=== PATIENT | female | born 1950 | race African-American/Black ===

== ENCOUNTER 2019-11-17 17:40 | Observation (INO) | payer OTHER, BC ==
--- NOTE | 2019-11-17 17:49 | PDOC ---
Rapid Medical Evaluation Chief Complaint: Palpitations Time Seen by Provider: 11/17/19 17:44 Medical Evaluation: Allergies Allergy/AdvReac Type Severity Reaction Status Date / Time No Known Allergies Allergy Verified 11/17/19 17:44 11/17/19 17:45 69 year old female BIBA with palpitations since yesterday. recent travel to [place]. denies pleuritic pain, chest pain Nausea/ vomiting. Patient alert ox3. A: tachycardia P: EKG Discharge Disposition - Diagnosis Palpitations - Referrals - Patient Instructions - Post Discharge Activity
[2019-11-17 18:14] VITALS: BMI 25.8
--- NOTE | 2019-11-17 18:53 | PDOC ---
History of Present Illness - General Chief Complaint: Palpitations Stated Complaint: PALPITATIONS Time Seen by Provider: 11/17/19 17:44 History Source: Patient Exam Limitations: No Limitations - History of Present Illness Initial Comments: 11/17/19 18:51 PCP: LUPE Villagomez Cards: Louis Ortega HPI: 69 yo F PMH HTN presenting with palpitations for 1 day. Patient reports palpitations since yesterday. Reports prior episodes of palpitations with negative cardiac workup, negative 24hour holter, no prior ACS. Follows with cardiology, has an appointment scheduled for tomorrow. Denies any other symptoms - no difficulty breathing, chest pain, nausea, sweating, arm pain, fevers / chills. Palpitations occurred yesterday, lasting overnight, resolving on arrival in the department. All: Levofloxacin Meds: Amlodipine 10mg, Losartan 50mg PMH: HTN PSH: Myomectomy, Intestinal Obstruction Past History - Travel Traveled outside of the country in the last 30 days: Yes If so, where?: [place] Close contact w/someone who was outside of country & ill: No - Past Medical History Allergies/Adverse Reactions: Allergies Allergy/AdvReac Type Severity Reaction Status Date / Time levofloxacin [From Levaquin] Allergy Mild Itching Verified 11/17/19 17:46 - Psycho Social/Smoking Cessation Hx Smoking History: Never smoked Hx Alcohol Use: No Drug/Substance Use Hx: No Review of Systems - Review of Systems Able to Perform ROS?: Yes Is the patient limited Mauritian proficient: Yes Constitutional: No: Chills, Diaphoresis, Fever HEENTM: No: Nose Congestion, Throat Pain Respiratory: No: Cough, Shortness of Breath, Stridor, Wheezing, Productive cough Cardiac (ROS): Yes: Palpitations. No: Chest Pain, Edema, Irregular Heart Rate, Lightheadedness, Syncope, Chest Tightness ABD/GI: No: Constipated, Diarrhea, Nausea, Vomiting : No: Burning, Dysuria, Frequency Musculoskeletal: No: Muscle Pain, Muscle Weakness Integumentary: No: Pallor, Pruritus, Rash, Sweating Neurological: No: Headache, Numbness, Tingling, Weakness Psychiatric: No: Sleep Pattern Change, Change in Appetite Endocrine: No: Increased Thirst, Increased Urine Hematologic/Lymphatic: No: Anemia, Blood Clots, Easy Bleeding All Other Systems: Reviewed and Negative *Physical Exam - Vital Signs Last Vital Signs Temp Pulse Resp BP Pulse Ox 98.0 F 124 H 18 137/73 96 11/17/19 17:45 11/17/19 17:45 11/17/19 17:45 11/17/19 17:45 11/17/19 17:45 - Physical Exam 11/17/19 20:01 Vitals reviewed, AFVSS GEN: Well appearing, appears stated age, NAD, comfortable. AAOx3. HEENT: NCAT, EOMI, PERRL. Sclera anicteric, noninjected. No facial asymmetry. Moist mucous membranes. Normal voice. Trachea midline. CV: RRR, S1/S2, no murmurs / rubs / gallops appreciated. LUNG: CTAB, normal work of breathing. No wheezes, rales, rhonchi. No cough. Speaking full sentences. GI: Soft, NTND, +BS, no guarding, no rebound. No masses. Neg CVAT b/l. EXTREMITIES: 2+ distal pulses. No LE edema. No obvious deformities of all extremities. SKIN: Warm, dry, no rashes appreciated, non-jaundiced. PSYCH: Normal mood and affect. Cooperative and appropriate. NEURO: CN grossly intact. Moving all extremities well. Normal strength and sensation grossly. Heart Score/ECG Review - History History: Slightly suspicious - Electrocardiogram EKG: Normal - Age Age: >/= 65 - Risk Factors Risk Factors Heart Score: Yes Hx Hypertension Based on the list above the patient has:: 1-2 risk factors - Troponin Troponin: </= normal limit - Score Heart Score - Total: 3 ED Treatment Course - LABORATORY CBC & Chemistry Diagram: 11/17/19 17:50 11/17/19 17:58 Medical Decision Making - Medical Decision Making 11/17/19 19:40 69 yo F PMH HTN presenting with palpitations for 1 day. HEART Score 3. DDX: Palpitations, arrhythmia, electrolyte abnormality, anxiety, unlikely ACS. - CBC, CMP, Cardiac, TSH - EKG, CXR EK, NSR, normal axis, QTc 457, T wave inversion V1, V2 11/17/19 20:05 - K = 3.2, related 40 mg PO - Troponin negative - CBC/CMP otherwise unremarkable - TSH pending Dispo: Home, Cardiac F/u tomorrow 11/17/19 20:44 - TSH within normal limits 11/17/19 22:21 - Repeat cardiac profile ordered 11/17/19 23:32 - Troponin 0.06 - Patient without chest pain, nausea, diaphoresis EKbpm, NSR, normal axis, diffuse T wave flattening compared with prior Admit 11/17/19 23:40 -Patient with evolving EKG, up-trending Troponin, will require admission for serial troponins / EKGs Discharge - Discharge Information Problems reviewed: Yes Clinical Impression/Diagnosis: Palpitations Condition: Improved Disposition: HOME - Admission No - Follow up/Referral Referrals: ON STAFF,NOT [Primary Care Provider] - - Patient Discharge Instructions Patient Printed Discharge Instructions: DI for Palpitations Additional Instructions: You were seen and evaluated for palpitations. Please follow up with your distribution agent tomorrow as scheduled. Return to the ED for any new or concerning symptoms. - Post Discharge Activity
[2019-11-17 19:02] LABS: BASO % 0.7 % (0-2.0); EOS % 1.3 % (0-4.5); HEMATOCRIT 39.1 % (32.4-45.2); HEMOGLOBIN 12.5 GM/dL (10.7-15.3); LYMPH % 31.1 % (8-40); MCH 24.7 pg (25.7-33.7); MCHC 32.1 g/dl (32.0-36.0); MONO % 6.1 % (3.8-10.2); NEUT % 60.8 % (42.8-82.8); RBC 5.08 M/mm3 (3.60-5.2); RDW 14.6 % (11.6-15.6); WHITE BLOOD COUNT 7.8 K/mm3 (4.0-10.0)
[2019-11-17 19:41] LABS: ALBUMIN 4.1 g/dl (3.4-5.0); BLOOD UREA NITROGEN 16.3 mg/dL (7-18); CALCIUM 9.9 mg/dL (8.5-10.1); CREATININE 1.1 mg/dL (0.55-1.3); MAGNESIUM 2.4 mg/dL (1.8-2.4); POTASSIUM 3.2 mmol/L (3.5-5.1); TOT PROT 7.6 g/dl (6.4-8.2)
[2019-11-17] MEDS ORDERED: POTASSIUM CHLORIDE TABS 20 MEQ TABLET.ER (FP) PO ONE ×2 (19:54→20:45)
[2019-11-17] MEDS ORDERED: MAGNESIUM SULF 50% (8.12 MEQ/2 ML-1 GM VIAL) IVPB ONE (20:10)
[2019-11-17] MEDS ORDERED: SODIUM CHLORIDE 0.9% 500 ML INFUS.BAG IV ONE (20:10)
[2019-11-17] MEDS ORDERED: amLODIPine BESYLATE 5 MG TABLET (FP) PO ONE (20:14)
[2019-11-17] MEDS ORDERED: MAGNESIUM 1GM/D5W - 2 GM/200 ML IVPB IVPB ONE (20:45)
[2019-11-17] MEDS ORDERED: amLODIPine BESYLATE 5 MG TABLET (FP) ONE (20:45)
--- NOTE | 2019-11-17 20:49 | PDOC ---
Attending Attestation - Resident Resident Name: EmileRommel - ED Attending Attestation I have performed the following: I have examined & evaluated the patient, The case was reviewed & discussed with the resident, I agree w/resident's findings & plan - HPI HPI: 11/17/19 20:46 Pt comes with depression. 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 States that she is lonely. SHe is living with a friend and splitting rent currently. - Physicial Exam PE: 11/17/19 20:49 Normal exam. Heart and lungs clear HEENT normal Afebrile Pt has no abd pain and no flank pain and no rash Pt has no leg edema - Medical Decision Making 11/17/19 20:49 Labs normal Pt feels better after talking with us. She is tachy at 1-5 on EKG> She is complaint with her amlodipine and her lisinopril. She will be given another dose of amlodipine and NSS (her blood sugar is 173) and she will get potassium and mag, as he K+ is low. Her PMD is Dr. Villagomez at [facility], and she will follow with him and she has a cardiology appt for tomorrow. 11/18/19 00:11 Pt will not make the cardiology appointment tomorrow, as her EKG is evolving and her troponin is increasing. She will be treated with asa, lovenox and will be admitted to tele Hospitalist is aware 11/18/19 05:25 EKG#2 has flattened t's. EKG is evolving for the worse. Heart Score/ECG Review - ECG Intrepretation Rhythm: Regular Rhythm - [place]: Normal - P and NV Delta Wave(s) Present: No WPW: No - QRS Poor R Wave Progression: No Q Wave Present: No - ST and T Early Repolarization: No Non Specific ST-T Wave changes: No - ECG Impressions Normal ECG: Yes Non-specific ST Elevation: No Ischemic Changes: No Tachycardia: Sinus
[2019-11-17 21:18] LABS: PLATELET COUNT 196 K/MM3 (134-434)
[2019-11-17 21:19] LABS: MEAN PLT VOLUME 10.3 fl (7.5-11.1); PLATELET ESTIMATE ADEQUATE
[2019-11-18] MEDS ORDERED: ASPIRIN 81 MG CHEWABLE TABLETS PO ONE (00:12)
[2019-11-18] MEDS ORDERED: ENOXAPARIN NA (PORCINE) 80 MG/0.8 ML DISP.SYRIN SQ ONE ×2 (00:12→00:49)
[2019-11-18] MEDS ORDERED: ASPIRIN 81 MG CHEWABLE TABLETS ONE (00:49)
--- NOTE | 2019-11-18 01:39 | HP ---
CHIEF COMPLAINT: palpitations PCP: HISTORY OF PRESENT ILLNESS: Patient is a 69 y/o female with a history of HTN who presents for two days of palpations. Patient has had palpitations in the past, nothing specific brought it on. She has not had a stress test recently but a few years ago she had a holter monitor that was negative. She follows with a hollow handle knife assembler and had an appointment tomorrow. She currently denies having any chest pain, palpatations, nausea, vomiting, or diarrhea ER course was notable for: (1) (2) (3) Recent Travel: denies PAST MEDICAL HISTORY: HTN PAST SURGICAL HISTORY: Social History: Smoking: denies Alcohol: denies Drugs: Allergies levofloxacin [From Levaquin] Allergy (Mild, Verified 11/17/19 17:46) Itching HOME MEDICATIONS: REVIEW OF SYSTEMS CONSTITUTIONAL: Absent: fever, chills, diaphoresis, generalized weakness, malaise, loss of appetite, weight change HEENT: Absent: rhinorrhea, nasal congestion, throat pain, throat swelling, difficulty swallowing, mouth swelling, ear pain, eye pain, visual changes CARDIOVASCULAR: palpitations, Absent: chest pain, syncope, irregular heart rate, lightheadedness, peripheral edema RESPIRATORY: Absent: cough, shortness of breath, dyspnea with exertion, orthopnea, wheezing, stridor, hemoptysis GASTROINTESTINAL: Absent: abdominal pain, abdominal distension, nausea, vomiting, diarrhea, constipation, melena, hematochezia GENITOURINARY: Absent: dysuria, frequency, urgency, hesitancy, hematuria, flank pain, genital pain MUSCULOSKELETAL: Absent: myalgia, arthralgia, joint swelling, back pain, neck pain SKIN: Absent: rash, itching, pallor HEMATOLOGIC/IMMUNOLOGIC: Absent: easy bleeding, easy bruising, lymphadenopathy, frequent infections ENDOCRINE: Absent: unexplained weight gain, unexplained weight loss, heat intolerance, cold intolerance NEUROLOGIC: Absent: headache, focal weakness or paresthesias, dizziness, unsteady gait, seizure, mental status changes, bladder or bowel incontinence PSYCHIATRIC: Absent: anxiety, depression, suicidal or homicidal ideation, hallucinations. PHYSICAL EXAMINATION Vital Signs - 24 hr 11/17/19 11/17/19 17:45 21:20 Temperature 98.0 F Pulse Rate 124 H Pulse Rate [ 91 H Left Radial] Respiratory 18 18 Rate Blood Pressure 137/73 Blood Pressure 121/75 [Right Arm] O2 Sat by Pulse 96 98 Oximetry (%) GENERAL: Awake, alert, and fully oriented, in no acute distress. HEAD: Normal with no signs of trauma. EYES: Pupils equal, round and reactive to light, extraocular movements intact EARS, NOSE, THROAT: Moist mucous membranes. LUNGS: Breath sounds equal, clear to auscultation bilaterally. No wheezes, and no crackles. No accessory muscle use. HEART: Regular rate and rhythm, normal S1 and S2 without murmur, rub or gallop. ABDOMEN: Soft, nontender, not distended, normoactive bowel sounds, no guarding, no rebound, no masses. MUSCULOSKELETAL: No CVA tenderness. LOWER EXTREMITIES: 2+ pulses, warm, well-perfused. No calf tenderness. No peripheral edema. NEUROLOGICAL: Cranial nerves II-XII intact. Normal speech. Normal gait. SKIN: Warm, dry, normal turgor, no rashes or lesions noted, normal capillary refill. CBC, BMP 11/17/19 17:50 11/17/19 17:58 ASSESSMENT/PLAN: Patient is a 69 y/o female with a history of HTN who presents for two days of palpations. #Palpatations, r/o ACS - cannot exclude palpatations 2/2 to hypokalemia - increased troponins, .04, .06, continue to trend - 2nd ekg with some twave flattening, non specific twave changes - full dose lovenox given 1x - ASA 324 once, will continue 81 daily, consider reconciling on discharge - f/u repeat ekg in am - ECHO ordered, would not be completed until Wednesday #HTN - monitor off medications - currently stable - one time amlodipine in ED #DVT ppx - heaprin TID FEN - regular diet - monitor K, repleted Dispo: if troponins flatten, consider discharging patient tomorrow and she can follow up with her Cardio appointment at noon - unable to confirm medications at this time - monitor on tele obs Visit type - Emergency Visit Emergency Visit: Yes ED Registration Date: 11/17/19 Care time: The patient presented to the Emergency Department on the above date and was hospitalized for further evaluation of their emergent condition. - New Patient This patient is new to me today: Yes Date on this admission: 11/18/19 - Critical Care Critical Care patient: No ATTENDING PHYSICIAN STATEMENT I saw and evaluated the patient. I reviewed the resident's note and discussed the case with the resident. I agree with the resident's findings and plan as documented. SUBJECTIVE: OBJECTIVE: ASSESSMENT AND PLAN:
--- NOTE | 2019-11-18 01:45 | PN ---
Teaching Attending Note Name of Resident: Karla Del Rio ATTENDING PHYSICIAN STATEMENT I saw and evaluated the patient. I reviewed the resident's note and discussed the case with the resident. I agree with the resident's findings and plan as documented. SUBJECTIVE: 69-year-old woman with a history of hypertension complaining of 2 days of palpitations which are continuous. Denied any chest pain or significant shortness of breath. Reports that she has had a Holter exam previously which was allegedly normal. She follows with a volcanologist and reports that has an appointment on 11/18/2019 at noon. OBJECTIVE: Last Vital Signs Temp Pulse Resp BP Pulse Ox 98.0 F 91 H 18 121/75 98 11/17/19 17:45 11/17/19 21:20 11/17/19 21:20 11/17/19 21:20 11/17/19 21:30 GENERAL: Well developed, well nourished. Awake and alert. No acute distress. HEENT: Normocephalic, atraumatic. PERRLA, EOMI. No conjunctival pallor. Sclera are non- icteric. Moist mucous membranes. Oropharynx is clear. NECK: Supple. Full ROM. No JVD. Carotid pulses 2+ and symmetric, without bruits. No thyromegaly. No lymphadenopathy. CARDIOVASCULAR: Regular rate and rhythm. No murmurs, rubs, or gallops. Distal pulses are 2+ and symmetric. PULMONARY: No evidence of respiratory distress. Lungs clear to auscultation bilaterally. No wheezing, rales or rhonchi. ABDOMINAL: Soft. Non-tender. Non-distended. No rebound or guarding. Normal bowel sounds, vertical scar MUSCULOSKELETAL Normal range of motion at all joints. No bony deformities or tenderness. No CVA tenderness. EXTREMITIES: No cyanosis. No clubbing. No edema. No calf tenderness. SKIN: Warm and dry. Normal capillary refill. No rashes. No jaundice. PSYCHIATRIC: Cooperative. Good eye contact. Appropriate mood and affect. Abnormal Lab Results 11/17/19 11/17/19 11/17/19 17:50 17:58 17:58 MCV 77.0 L MCH 24.7 L Potassium 3.2 L Random Glucose 173 H Creatine Kinase 198 H CK-MB (CK-2) 6.6 H Troponin I 11/17/19 22:10 MCV MCH Potassium Random Glucose Creatine Kinase CK-MB (CK-2) 6.1 H Troponin I 0.06 H EKG Reviewed, showed normal sinus rhythm with some nonspecific T wave changes ASSESSMENT AND PLAN: 69-year-old woman with palpitations with EKG showing normal sinus rhythm with normal rate. Mildly elevated cardiac markersCK-MB and troponin. No active chest pain and doubt ACS. Noted to have hypokalemia which may contribute to palpitations and arrhythmias. Telemetry observation Trend troponins Transthoracic echo Supplement potassium Check electrolytes and supplement as needed Urine toxicology screen Chest x-ray #Hypertension Continue losartan and amlodipine 2 g salt diet #DVT prophylaxisheparin subcutaneously
[2019-11-18] MEDS: HEPARIN NA (PORCINE) 5,000 UNITS/ML 1ML VIAL SQ SCH ×3 (06:44→21:36)
[2019-11-18 07:46] LABS: BASO % 0.9 % (0-2.0); HEMATOCRIT 34.7 % (32.4-45.2); HEMOGLOBIN 11.2 GM/dL (10.7-15.3); LYMPH % 45.2 % (8-40); MCH 24.7 pg (25.7-33.7); MCHC 32.4 g/dl (32.0-36.0); MEAN CELL VOLUME 76.2 fl (80-96); MEAN PLT VOLUME 10.1 fl (7.5-11.1); MONO % 6.3 % (3.8-10.2); NEUT % 44.6 % (42.8-82.8); PLATELET COUNT 170 K/MM3 (134-434); RBC 4.55 M/mm3 (3.60-5.2); RDW 14.3 % (11.6-15.6); WHITE BLOOD COUNT 5.3 K/mm3 (4.0-10.0)
[2019-11-18 08:18] LABS: ALBUMIN 3.5 g/dl (3.4-5.0); BILIRUBIN,TOTAL 1.1 mg/dL (0.2-1); BLOOD UREA NITROGEN 12.1 mg/dL (7-18); CALCIUM 9.9 mg/dL (8.5-10.1); CREATININE 0.8 mg/dL (0.55-1.3); MAGNESIUM 2.8 mg/dL (1.8-2.4); PHOSPHOROUS 2.7 mg/dL (2.5-4.9); POTASSIUM 3.5 mmol/L (3.5-5.1); TOT PROT 6.7 g/dl (6.4-8.2)
[2019-11-18] MEDS: ASPIRIN 81 MG CHEWABLE TABLETS PO SCH (09:28)
[2019-11-18] MEDS ORDERED: PNEUMOC 13-VAL CONJ-DIP CRM/PF 0.5 ML DISP.SYRIN IM ONE (10:00)
--- NOTE | 2019-11-18 14:29 | EKG ---
Test Reason : Blood Pressure : / mmHG Vent. Rate : 065 BPM Atrial Rate : 065 BPM P-R Int : 166 ms QRS Dur : 078 ms QT Int : 304 ms P-R-T Axes : 059 011 002 degrees QTc Int : 316 ms NORMAL SINUS RHYTHM NONSPECIFIC T WAVE ABNORMALITY ABNORMAL ECG Confirmed by MD DASHA, NILAM ([id number]) on 11/18/2019 2:29:38 PM Referred By: Confirmed By:NILAM LOU MD
--- NOTE | 2019-11-18 14:31 | EKG ---
Test Reason : Blood Pressure : / mmHG Vent. Rate : 105 BPM Atrial Rate : 105 BPM P-R Int : 162 ms QRS Dur : 068 ms QT Int : 346 ms P-R-T Axes : 059 028 039 degrees QTc Int : 457 ms SINUS TACHYCARDIA POSSIBLE LEFT ATRIAL ENLARGEMENT NONSPECIFIC ST AND T WAVE ABNORMALITY ABNORMAL ECG Confirmed by MD DASHA, NILAM ([id number]) on 11/18/2019 2:31:19 PM Referred By: Confirmed By:NILAM LOU MD
--- NOTE | 2019-11-18 15:37 | PN ---
Physical Exam: SUBJECTIVE: Patient seen and examined. She has no complaints. She denies CP, palpitations, SOB. OBJECTIVE: Vital Signs Period Temp Pulse Resp BP Sys/Guevara Pulse Ox Last 24 Hr 97.8 F-99.2 F 65-124 18-20 109-137/62-77 96-99 GENERAL: The patient is awake, alert, and fully oriented, in no acute distress. LUNGS: Breath sounds equal, clear to auscultation bilaterally, no wheezes, no crackles, no accessory muscle use. HEART: Regular rate and rhythm, S1, S2 without murmur, rub or gallop. ABDOMEN: Soft, nontender, nondistended, normoactive bowel sounds, no guarding, no rebound, no hepatosplenomegaly, no masses. EXTREMITIES: 2+ pulses, warm, well-perfused, no edema. Laboratory Results - last 24 hr 11/17/19 11/17/19 11/17/19 17:50 17:58 17:58 WBC 7.8 RBC 5.08 Hgb 12.5 Hct 39.1 MCV 77.0 L MCH 24.7 L MCHC 32.1 RDW 14.6 Plt Count 196 MPV 10.3 Absolute Neuts (auto) 4.8 Neutrophils % 60.8 Lymphocytes % 31.1 Monocytes % 6.1 Eosinophils % 1.3 Basophils % 0.7 Nucleated RBC % 0 Platelet Estimate Adequate Platelet Comment Giant platelets Sodium 137 Potassium 3.2 L Chloride 102 Carbon Dioxide 27 Anion Gap 8 BUN 16.3 Creatinine 1.1 Est GFR (CKD-EPI)AfAm 59.32 Est GFR (CKD-EPI)NonAf 51.18 Random Glucose 173 H Calcium 9.9 Phosphorus Magnesium 2.4 Total Bilirubin 1.0 AST 26 ALT 27 Alkaline Phosphatase 113 Creatine Kinase 198 H Creatine Kinase Index 3.3 CK-MB (CK-2) 6.6 H Troponin I 0.04 Total Protein 7.6 Albumin 4.1 TSH 1.23 11/17/19 11/18/19 11/18/19 22:10 03:00 05:35 WBC 5.3 RBC 4.55 Hgb 11.2 Hct 34.7 MCV 76.2 L MCH 24.7 L MCHC 32.4 RDW 14.3 Plt Count 170 MPV 10.1 Absolute Neuts (auto) 2.4 Neutrophils % 44.6 D Lymphocytes % 45.2 H D Monocytes % 6.3 Eosinophils % 3.0 D Basophils % 0.9 Nucleated RBC % 0 Platelet Estimate Platelet Comment Sodium Potassium Chloride Carbon Dioxide Anion Gap BUN Creatinine Est GFR (CKD-EPI)AfAm Est GFR (CKD-EPI)NonAf Random Glucose Calcium Phosphorus Magnesium Total Bilirubin AST ALT Alkaline Phosphatase Creatine Kinase 183 173 Creatine Kinase Index 3.3 3.6 CK-MB (CK-2) 6.1 H 6.4 H Troponin I 0.06 H 0.04 Total Protein Albumin TSH 11/18/19 05:35 WBC RBC Hgb Hct MCV MCH MCHC RDW Plt Count MPV Absolute Neuts (auto) Neutrophils % Lymphocytes % Monocytes % Eosinophils % Basophils % Nucleated RBC % Platelet Estimate Platelet Comment Sodium 144 Potassium 3.5 Chloride 111 H Carbon Dioxide 26 Anion Gap 7 L BUN 12.1 Creatinine 0.8 Est GFR (CKD-EPI)AfAm 87.18 Est GFR (CKD-EPI)NonAf 75.22 Random Glucose 91 Calcium 9.9 Phosphorus 2.7 Magnesium 2.8 H Total Bilirubin 1.1 H AST 22 ALT 23 Alkaline Phosphatase 93 Creatine Kinase Creatine Kinase Index CK-MB (CK-2) Troponin I Total Protein 6.7 Albumin 3.5 TSH Active Medications Generic Name Dose Route Start Last Admin Trade Name Freq PRN Reason Stop Dose Admin Amlodipine Besylate 10 mg 11/18/19 14:45 Norvasc - PO DAILY [facility] Aspirin 81 mg 11/18/19 10:00 11/18/19 09:28 Asa - PO 81 mg DAILY [facility] Administration Heparin Sodium (Porcine) 5,000 unit 11/18/19 06:00 11/18/19 14:33 Heparin - SQ Not Given TID [facility] Losartan Potassium 50 mg 11/18/19 14:45 Cozaar - PO DAILY [facility] ASSESSMENT/PLAN: This is a 69 year old woman with a history of HTN who presented to the ED with palpitations. 1. Palpitations - No arrhythmias on telemetry - Continue telemetry x 24 hours - TSH normal - Ambulate while on telemetry 2. Hypokalemia - Improved 3. HTN - Continue Norvasc, Cozaar 4. Disposition - If remains asymptomatic and no evidence of arrhythmia, can be discharged in AM to follow-up with her dsp engineer and have outpatient echo Visit type - Emergency Visit Emergency Visit: Yes ED Registration Date: 11/17/19 Care time: The patient presented to the Emergency Department on the above date and was hospitalized for further evaluation of their emergent condition. - New Patient This patient is new to me today: Yes Date on this admission: 11/18/19 - Critical Care Critical Care patient: No - Discharge Referral Referred to [facility] Med P.C.: No
[2019-11-18] MEDS: LOSARTAN POTASSIUM 50 MG TABLET (FP) PO SCH (15:48)
[2019-11-18] MEDS: amLODIPine BESYLATE 10 MG TABLET (FP) PO SCH (15:48)
[2019-11-19] MEDS: HEPARIN NA (PORCINE) 5,000 UNITS/ML 1ML VIAL SQ SCH ×3 (06:29→21:15)
[2019-11-19 06:56] LABS: BLOOD UREA NITROGEN 10.6 mg/dL (7-18); CALCIUM 9.5 mg/dL (8.5-10.1); CREATININE 0.8 mg/dL (0.55-1.3); MAGNESIUM 2.2 mg/dL (1.8-2.4); POTASSIUM 3.3 mmol/L (3.5-5.1)
[2019-11-19] MEDS: ASPIRIN 81 MG CHEWABLE TABLETS PO SCH (09:10)
[2019-11-19] MEDS: amLODIPine BESYLATE 10 MG TABLET (FP) PO SCH (09:10)
[2019-11-19] MEDS: LOSARTAN POTASSIUM 50 MG TABLET (FP) PO SCH (09:10)
[2019-11-19] MEDS ORDERED: POTASSIUM CHLORIDE TABS 20 MEQ TABLET.ER (FP) PO ONE (10:23)
--- NOTE | 2019-11-19 11:52 | PN ---
Physical Exam: SUBJECTIVE: Patient seen and examined. She has no complaints. She has had no further palpitations. OBJECTIVE: Vital Signs Period Temp Pulse Resp BP Sys/Guevara Pulse Ox Last 24 Hr 97.9 F-98.6 F 60-83 18-20 130-151/74-88 98-99 GENERAL: The patient is awake, alert, and fully oriented, in no acute distress. LUNGS: Breath sounds equal, clear to auscultation bilaterally, no wheezes, no crackles, no accessory muscle use. HEART: Regular rate and rhythm, S1, S2 without murmur, rub or gallop. ABDOMEN: Soft, nontender, nondistended, normoactive bowel sounds, no guarding, no rebound, no hepatosplenomegaly, no masses. EXTREMITIES: 2+ pulses, warm, well-perfused, no edema. Laboratory Results - last 24 hr 11/19/19 06:16 Sodium 143 Potassium 3.3 L Chloride 111 H Carbon Dioxide 27 Anion Gap 5 L BUN 10.6 Creatinine 0.8 Est GFR (CKD-EPI)AfAm 87.18 Est GFR (CKD-EPI)NonAf 75.22 Random Glucose 89 Calcium 9.5 Magnesium 2.2 Active Medications Generic Name Dose Route Start Last Admin Trade Name Freq PRN Reason Stop Dose Admin Amlodipine Besylate 10 mg 11/18/19 14:45 11/19/19 09:10 Norvasc - PO 10 mg DAILY [facility] Administration Aspirin 81 mg 11/18/19 10:00 11/19/19 09:10 Asa - PO 81 mg DAILY [facility] Administration Heparin Sodium (Porcine) 5,000 unit 11/18/19 06:00 11/19/19 06:29 Heparin - SQ Not Given TID [facility] Losartan Potassium 50 mg 11/18/19 14:45 11/19/19 09:10 Cozaar - PO 50 mg DAILY JF Administration ASSESSMENT/PLAN: This is a 69 year old woman with a history of HTN who presented to the ED with palpitations. 1. Palpitations - No arrhythmias on telemetry - TSH normal 2. Hypokalemia - Potassium low again at 3.3 - Replete potassium - Patient denies diuretic use, vomiting, diarrhea - She reports that she usually eats bananas but has had only 2 in the last month - She also reports drinking a lot of water and urinating frequently - Check urine lytes, osmolality 3. HTN - Continue Norvasc, Cozaar Visit type - Emergency Visit Emergency Visit: Yes ED Registration Date: 11/17/19 Care time: The patient presented to the Emergency Department on the above date and was hospitalized for further evaluation of their emergent condition. - New Patient This patient is new to me today: No - Critical Care Critical Care patient: No - Discharge Referral Referred to [facility] Med P.C.: No
[2019-11-19 17:37] LABS: BLOOD UREA NITROGEN 14.6 mg/dL (7-18); CALCIUM 9.8 mg/dL (8.5-10.1); CREATININE 0.8 mg/dL (0.55-1.3); POTASSIUM 4.1 mmol/L (3.5-5.1)
[2019-11-20] MEDS: HEPARIN NA (PORCINE) 5,000 UNITS/ML 1ML VIAL SQ SCH ×2 (06:07→13:14)
[2019-11-20 08:23] LABS: BLOOD UREA NITROGEN 11.9 mg/dL (7-18); CALCIUM 9.8 mg/dL (8.5-10.1); CREATININE 0.7 mg/dL (0.55-1.3); MAGNESIUM 2.3 mg/dL (1.8-2.4)
[2019-11-20] MEDS: ASPIRIN 81 MG CHEWABLE TABLETS PO SCH (10:14)
[2019-11-20] MEDS: LOSARTAN POTASSIUM 50 MG TABLET (FP) PO SCH (10:14)
[2019-11-20] MEDS: amLODIPine BESYLATE 10 MG TABLET (FP) PO SCH (10:14)
--- NOTE | 2019-11-20 10:26 | ECHO ---
Name: RUBY CLARK Exam:Adult Echocardiogram Study Date: 11/20/2019 08:41 AM Age: 69 yrs Height: 66 in Weight: 147 lb BSA: 1.8 m2 MMode/2D Measurements & Calculations IVSd: 0.90 cm Ao root diam: 3.2 cm LVIDd: 4.8 cm LA dimension: 3.8 cm LVIDs: 2.6 cm ACS: 1.8 cm LVPWd: 0.86 cm IVSs: 1.3 cm LVPWs: 1.1 cm EDV(Teich): 107.4 ml ESV(Teich): 25.8 ml Doppler Measurements & Calculations MV E max feliciano: 111.1 cm/sec Ao V2 max: 161.4 cm/sec MV A max feliciano: 128.3 cm/sec Ao max P.4 mmHg MV E/A: 0.87 Ao V2 mean: 115.9 cm/sec Ao mean P.8 mmHg Ao V2 VTI: 32.2 cm MR max feliciano: 480.7 cm/sec TR max feliciano: 262.4 cm/sec MR max P.6 mmHg TR max P.6 mmHg Med Peak E' Feliciano: 5.5 cm/sec Med E/e': 20.3 Lat Peak E' Feliciano: 7.5 cm/sec Lat E/e': 14.9 Procedure Study Quality: Fair. Left Ventricle The left ventricle is normal in size. There is mild concentric left ventricular hypertrophy. The left ventricular ejection fraction is normal. Ejection Fraction = 60-65%. The transmitral spectral Doppler flow pattern is suggestive of impaired LV relaxation. Right Ventricle The right ventricle is normal in size and function. Atria Normal left and right atrial size and function. Mitral Valve The mitral valve is grossly normal. There is trace to mild mitral regurgitation. Tricuspid Valve The tricuspid valve is not well visualized, but is grossly normal. There is mild tricuspid regurgitat ion. Right ventricular systolic pressure is normal. Aortic Valve The aortic valve is trileaflet. No hemodynamically significant valvular aortic stenosis. No aortic regurgitation is present. Pulmonic Valve The pulmonic valve is not well visualized. Great Vessels The aortic root is normal size. Pericardium/Pleura There is no pericardial effusion. Interpretation Summary LV: Cristiane size , borderlinr LVH, normal systolic function, EF 55-60%,impaired relaxation RV: Normal Mild tricuspid regurgitation with normal RVSP Trace to mild mitral regurgitation. Fadia Cohen 11/20/2019 10:26 AM
[2019-11-20 15:17] VITALS: BP 122/84; PULSE 78; TEMP 98.3
--- NOTE | 2019-11-20 16:07 | DS ---
Physical Exam: SUBJECTIVE: Patient seen and examined. No chest pain, no shortness of breath, no palpitations. OBJECTIVE: Vital Signs Period Temp Pulse Resp BP Sys/Guevara Pulse Ox Last 24 Hr 97.3 F-98.3 F 57-78 - 105-144/71-86 98-100 Vital Signs Temp 98.3 F 11/20/19 14:00 Pulse 78 11/20/19 14:00 Resp 20 11/20/19 14:00 BP 122/84 11/20/19 14:00 Pulse Ox 100 11/20/19 13:00 Intake & Output 11/19/19 11/20/19 11/20/19 23:59 11:59 23:59 Intake Total 760 210 Balance 760 210 Intake: IV 10 10 peripheral IV 10 10 Oral 750 200 Other: Voiding Method Toilet Toilet Toilet # Unmeasured Voids Void 2 2 Bowel Movement No No PHYSICAL EXAM GENERAL: The patient is awake, alert, and fully oriented, in no acute distress. ENT: moist mucous membranes. NECK: Trachea midline, full range of motion, supple, no JVD. LUNGS: Breath sounds equal, clear to auscultation bilaterally, no wheezes, no crackles HEART: Regular rate and rhythm, S1, S2 without murmur ABDOMEN: Soft, nontender, nondistended, normoactive bowel sounds, no guarding, no rebound EXTREMITIES: 2+ pulses, warm, well-perfused, no edema. NEUROLOGICAL: Cranial nerves II through XII grossly intact. Normal speech, gait not observed. LABS Laboratory Results - last 24 hr 11/19/19 11/20/19 16:43 06:00 Sodium 142 144 Potassium 4.1 4.0 Chloride 110 H 112 H Carbon Dioxide 29 28 Anion Gap 3 L 4 L BUN 14.6 11.9 Creatinine 0.8 0.7 Est GFR (CKD-EPI)AfAm 87.18 102.46 Est GFR (CKD-EPI)NonAf 75.22 88.40 Random Glucose 97 83 Calcium 9.8 9.8 Magnesium 2.3 ECHO 11/20/19: LV: nl size, borderline LVH, nl systolic function,EF 55-60% with impaired relaxation. Mild TR with nl RVSP. Trace to mild MR. HOSPITAL COURSE: Date of Admission:11/17/19 Date of Discharge: 11/20/19 Pt is a 69 yo F with a history of HTN who presented to the ED with palpitations and one episode of hypokalemia. Pt was put on tele with no arrythmias noted, with normal TSH and hypokalemia that was corrected. Palpitations resolved on arrival in hospital. ECHO indicative of DHF. Pt was discharged home on ASA, norvasc and cozaar to follow up with outpt preventive medicine specialist and PCP. Minutes to complete discharge: 35 Discharge Summary Problems reviewed: Yes Reason For Visit: PALPITATIONS/ELEVATED TROPONIN LEVEL/DECREASED Condition: Improved - Instructions Diet, Activity, Other Instructions: You were admitted for pounding sensations in your chest You had blood tests done that showed you did not have a heart attack You got an ultrasound of your heart done (ECHO) that shows some abnormal functioning of the heart (diastolic heart failure) Medications added: Daily aspirin 81mg has been added to your medications Medications to continue: Continue with your blood pressure medications as prescribed- Losartan and amlodipine Follow up: You potassium was low while you were in the hospital, please follow up with your primary care doctor in one week to have it checked Follow up with your primary care doctor within a week Follow up with your outpatient preventive medicine specialist If you feel like your symptoms are getting worse with worsening chest pain, shortness of breath or racing heart beat, please return to the nearest emergency room Referrals: Shannon Edwards [Other] - 1 Week (Follow up for hypokalemia and palpitations ECHO showed DHF) Edwige Villagomez [Other] - 1 Week (Follow up for hypokalemia and palpitations ECHO showed DHF) Disposition: HOME - Home Medications Comprehensive Discharge Medication List: Ambulatory Orders Amlodipine Besylate [Norvasc -] 10 mg PO DAILY 11/18/19 Losartan Potassium 50 mg PO DAILY 11/18/19 Aspirin [ASA -] 81 mg PO DAILY #30 tab.chew 11/20/19 This patient is new to me today: Yes Date on this admission: 11/20/19 Emergency Visit: Yes ED Registration Date: 11/17/19 Care time: The patient presented to the Emergency Department on the above date and was hospitalized for further evaluation of their emergent condition. Critical Care patient: No - Discharge Referral Referred to [facility] Med [facility].C[facility] No ATTENDING PHYSICIAN STATEMENT I saw and evaluated the patient. I reviewed the resident's note and discussed the case with the resident. I agree with the resident's findings and plan as documented. SUBJECTIVE: OBJECTIVE: ASSESSMENT AND PLAN:
--- NOTE | 2019-11-20 19:12 | PN ---
Teaching Attending Note Name of Resident: Giuliana Brito ATTENDING PHYSICIAN STATEMENT I saw and evaluated the patient. I reviewed the resident's note and discussed the case with the resident. I agree with the resident's findings and plan as documented. SUBJECTIVE: Patient has no complaints. OBJECTIVE: Vital Signs Period Temp Pulse Resp BP Sys/Guevara Pulse Ox Last 24 Hr 97.3 F-98.3 F 57-78 20-20 105-144/71-86 98-100 GENERAL: The patient is awake, alert, and fully oriented, in no acute distress. LUNGS: Breath sounds equal, clear to auscultation bilaterally, no wheezes, no crackles, no accessory muscle use. HEART: Regular rate and rhythm, S1, S2 without murmur, rub or gallop. ABDOMEN: Soft, nontender, nondistended, normoactive bowel sounds, no guarding, no rebound, no hepatosplenomegaly, no masses. EXTREMITIES: 2+ pulses, warm, well-perfused, no edema. Laboratory Results - last 24 hr 11/20/19 06:00 Sodium 144 Potassium 4.0 Chloride 112 H Carbon Dioxide 28 Anion Gap 4 L BUN 11.9 Creatinine 0.7 Est GFR (CKD-EPI)AfAm 102.46 Est GFR (CKD-EPI)NonAf 88.40 Random Glucose 83 Calcium 9.8 Magnesium 2.3 ASSESSMENT AND PLAN: This is a 69 year old woman with a history of HTN who presented to the ED with palpitations. 1. Palpitations - No arrhythmias on telemetry - TSH normal 2. Hypokalemia - Improved 3. HTN - Continue Niya Weeks 4. Disposition - Ok for discharge
== END 2019-11-20 15:10 | disposition home or self-care (01) ==
LOC: JER 17:40 → JERBED 23:26 → INTOOBSV 23:26 → J4W 11-18 02:10
PROVIDERS: ADMIT Internal Medicine; ATTEND Internal Medicine
PROC: 3E0337Z Introduction of Electrolytic and Water Balance Substance into Peripheral Vein, Percutaneous Approach (ICD-10-PCS; principal; 2019-11-17)
PROC: 3E013GC Introduction of Other Therapeutic Substance into Subcutaneous Tissue, Percutaneous Approach (ICD-10-PCS; 2019-11-17)
DX: R00.2 Palpitations (principal); R77.8 Other specified abnormalities of plasma proteins; I10 Essential (primary) hypertension; E87.6 Hypokalemia; Z88.1 Allergy status to other antibiotic agents
CPT/HCPCS: 36415; 71046-TC-FY; 80048; 80053; 82436; 82550; 82553; 82565; 83735; 83935; 84100; 84133; 84300; 84443; 84484; 85025; 93005; 93010; 93306-TC; 96372; 99284-25; G0378; J1644